=== PATIENT | female | born 2000 | race Caucasian/White ===

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

== ENCOUNTER 2023-10-21 06:36 | Emergency (ER) | payer BC ==
[~2023-10-21] VITALS: Ht 154.9 cm; Wt 65.8 kg
[2023-10-21 07:05] LABS: BASO # 0.1 10*3/uL (0.0-0.1); BASO % 0.8 % (0.0-1.0); EOS # 0.2 10*3/uL (0.0-0.4); EOS % 3.4 % (1.0-4.0); HEMATOCRIT 37.7 % (37.0-47.0); LYMPH % 32.1 % (27.0-41.0); MEAN CORPUSCULAR HGB 29.9 pg (27.0-31.0); MEAN CORPUSCULAR HGB CONC 31.8 g/dl (33.0-37.0); MONO # 0.6 10*3/uL (0.1-1.0); MONO % 9.4 % (3.0-9.0); NEUT # 3.3 10*3/uL (2.3-7.9); NEUT % 54.1 % (47.0-73.0); PLATELET COUNT AUTOMATED 197 10*3/uL (130-400); RED BLOOD COUNT 4.01 10*6/uL (4.10-5.10); RED CELL DISTRI WIDTH 12.5 % (0-14.5); WHITE BLOOD COUNT 6.2 10*3/uL (4.8-10.8)
[2023-10-21 07:31] LABS: ALKALINE PHOSPHATASE 59 U/L (46-116); BUN 10 mg/dl (9-23); CHLORIDE 109 mmol/L (98-107); LIPASE 229 U/L (12-53); SGPT/ALT < 7 U/L (5-49); TOTAL PROTEIN 6.3 gm/dL (6.0-8.0)
== END 2023-10-21 11:49 | disposition home or self-care (01) ==
LOC: ED 06:36
PROVIDERS: Internal Medicine
DX: O03.9 Complete or unspecified spontaneous abortion without complication (principal); R10.2 Pelvic and perineal pain

== ENCOUNTER 2023-10-27 13:46 | Emergency (ER) | payer BC ==
[~2023-10-27] VITALS: Ht 154.9 cm; Wt 65.8 kg
== END 2023-10-27 16:06 | disposition home or self-care (01) ==
LOC: ED 13:46
DX: Z00.01 Encounter for general adult medical examination with abnormal findings (principal); R10.2 Pelvic and perineal pain